=== PATIENT | female | born 1955 | race Caucasian/White ===

== ENCOUNTER 2017-02-08 12:31 | Emergency (ER) | payer BC ==
[~2017-02-08] VITALS: Ht 162.6 cm; Wt 80.9 kg
[~2017-02-08 12:31] MED LIST: ALLEGRA ALLERGY60 MG PO; BENADRYL25 M2 PO; CLEOCIN HC150 MG/CAP PO; COLACE 100100 MG/CAP PO; DOXYCYCLINE 10100 MG PO; ESTROGENS IV; FLONASE NASAL S16 GM NS; FLOVENT 44MCG I13 GM IH; PEPCID20 MG PO; PHENERGAN 25 TA25 MG PO; PROMETRIUM100 MG PO; SIMETHICON PO; TYLENOL 325MG325 MG PO; ULTRAM 50MG TAB50 MG PO; XOPENEX HF0.045 MG/A IH; ZANTAC 150MG T150 MG PO
[2017-02-08 12:34] VITALS: TEMP 98
[2017-02-08] MEDS ORDERED: MILK THISTLE150 MG PO (12:38)
[2017-02-08] MEDS ORDERED: VITAMIN D32000 IU PO (12:39)
[2017-02-08] MEDS ORDERED: PROBIOTIC FORMU1 CAP PO (12:39)
[2017-02-08 14:10] LABS: BASO # 0.1 (0.0-0.2); BASO % 1.1 % (0.0-2.0); EOS # 0.1 (0.0-0.7); EOS % 1.3 % (0-4.0); GRAN # 4.1 (1.4-6.5); HEMOGLOBIN 13.9 g/dl (12.5-16.0); LYMPH # 1.5 (1.2-3.4); LYMPH % 23.7 % (20.0-51.0); MEAN CELL VOLUME 89 fl (80.0-100.0); MEAN CORPUSCULAR HEMOGLOBIN 30 pg (27.0-31.0); MEAN CORPUSCULAR HGB CONC 34 g/dl (33.0-37.0); MEAN PLATELET VOLUME 9.7 fl (7.4-10.4); MONO # 0.4 (0.1-0.6); MONO % 6.3 % (1.7-9.3); PLATELET COUNT 260 K/mm3 (130-400); PROTHROMBIN TIME 10.7 SECONDS (9.7-12.8); RED BLOOD COUNT 4.61 M/mm3 (4.10-5.30); REDCELL DISTRIBUTION WIDTH-CV 13.2 % (11.5-14.5); WHITE BLOOD COUNT 6.2 K/mm3 (4.8-10.8)
[2017-02-08 14:22] LABS: ADJUSTED CALCIUM 9.6 mg/dL (8.4-10.2); ALANINE AMINOTRANSFERASE 43 U/L (9-52); ALBUMIN 4.3 gm/dL (3.5-5.0); ALKALINE PHOSPHATASE 67 U/L (50-136); ANION GAP 14 mmol/L (7-16); BILIRUBIN,TOTAL 0.6 mg/dL (0.0-1.0); BLOOD UREA NITROGEN 18 mg/dL (7-17); CALCIUM 9.8 mg/dL (8.4-10.2); CARBON DIOXIDE 26 mmol/L (22-30); CHLORIDE 103 mmol/L (98-107); CREATININE, serum 0.69 mg/dL (0.52-1.25); GLUCOSE 101 mg/dL (74-106); POTASSIUM 4.2 mmol/L (3.4-5.0); SODIUM 143 mmol/L (137-145); TOTAL PROTEIN 7.6 gm/dL (6.4-8.2)
[2017-02-08 14:44] LABS: TROPONIN-I < 0.012 ng/mL (0.000-0.034)
[2017-02-08 15:13] VITALS: BP 134/82; PULSE 74
== END 2017-02-08 15:14 | disposition home or self-care (01) ==
LOC: COL.ER 12:31
PROVIDERS: Family Medicine
DX: R07.9 Chest pain, unspecified (principal); I44.0 Atrioventricular block, first degree

== ENCOUNTER → 2018-11-10 | Outpatient (CLI) | payer BC ==
[~2018-11-10] MED LIST changes: +MILK THISTLE150 MG PO; +PROBIOTIC FORMU1 CAP PO; +VITAMIN D32000 IU PO
== END ==
LOC: COL.RAD 13:30
DX: E04.1 Nontoxic single thyroid nodule (principal)

== ENCOUNTER 2021-04-05 09:19 | Emergency (ER) | payer OTHER ==
[~2021-04-05] VITALS: Ht 162.6 cm; Wt 84.1 kg
[2021-04-05 09:27] VITALS: TEMP 98
[2021-04-05 10:03] LABS: BASO # 0.1 (0.0-0.2); EOS # 0.1 (0.0-0.7); EOS % 1.6 % (0-4.0); GRAN # 6.3 (1.4-6.5); GRAN % 72.3 % (42.2-75.2); HEMATOCRIT 42.2 % (37.0-47.0); HEMOGLOBIN 13.9 g/dl (12.5-16.0); LYMPH # 1.7 (1.2-3.4); LYMPH % 19.6 % (20.0-51.0); MEAN CELL VOLUME 89 fl (80.0-100.0); MEAN CORPUSCULAR HEMOGLOBIN 29 pg (27.0-31.0); MEAN CORPUSCULAR HGB CONC 33 g/dl (33.0-37.0); MEAN PLATELET VOLUME 9.1 fl (7.4-10.4); MONO # 0.5 (0.1-0.6); MONO % 5.2 % (1.7-9.3); PLATELET COUNT 254 K/mm3 (130-400); RED BLOOD COUNT 4.72 M/mm3 (4.10-5.30); REDCELL DISTRIBUTION WIDTH-CV 13.2 % (11.5-14.5)
[2021-04-05 10:13] LABS: ALBUMIN 4.4 gm/dL (3.5-5.0); BILIRUBIN,TOTAL 0.1 mg/dL (0.0-1.0); CALCIUM 9.3 mg/dL (8.4-10.2); CREATININE, serum 0.75 (0.52-1.25); TOTAL PROTEIN 7.8 gm/dL (6.4-8.2)
[2021-04-05 12:02] VITALS: BP 132/69; PULSE 62
== END 2021-04-05 12:04 | disposition home or self-care (01) ==
LOC: COL.ER 09:19
PROVIDERS: Emergency Medicine
DX: S06.0X0A Concussion without loss of consciousness, initial encounter (principal); R19.7 Diarrhea, unspecified; W01.198A Fall on same level from slipping, tripping and stumbling with subsequent striking against other object, initial encounter
CPT/HCPCS: J7030

== ENCOUNTER → 2023-03-30 | Outpatient (CLI) | payer MEDICARE, OTHER | LOC: MC.RAD 12:00 | DX: Z12.31 Encounter for screening mammogram for malignant neoplasm of breast (principal) ==